=== PATIENT | female | born 1965 | race Asian ===

== ENCOUNTER 2016-10-31 20:08 | Emergency (ER) | payer SELFPAY ==
[~2016-10-31] VITALS: Ht 160 cm; Wt 57.6 kg
[2016-10-31 21:03] LABS: Basophils # (auto) 0 uL; CONDITION Y; Eosinophils # (auto) 0 uL; Hematocrit 39.4 % (36.0-46.0); Hemoglobin 13.1 g/dL (12.2-16.2); Lymphocytes # (auto) 0.6 uL; Lymphocytes % (auto) 6.6 % (10.0-50.0); Mean Corpuscular Hgb Conc. 33.2 g/dL (32.0-36.0); Mean Corpuscular Volume 90.3 fL (80.0-100.0); Mean Platelet Volume 9.3 fL (7.4-10.4); Monocytes # (auto) 0.3 uL; Monocytes % (auto) 3.2 % (0.0-12.0); Neutrophils # (auto) 8.3 uL; Neutrophils % (auto) 90.2 % (37.0-80.0); Platelet Count (auto) 344 10^3/uL (140-450); Red Cell Distribution Width 14.3 % (11.6-16.0); White Blood Cell 9.2 10^3/uL (4.4-10.8)
[2016-10-31 21:19] LABS: INR 0.94 (0.9-1.15); Partial Thromboplastin Time 25.4 sec (22.64-33.71); Prothrombin Time 10.2 sec (9.37-12.3)
[2016-10-31 21:29] LABS: Albumin 4.3 g/dL (3.4-5.0); Anion Gap 12 (5-15); Aspartate Aminotransferase 41 U/L (15-37); BUN/Creatinine Ratio 19.8; Blood Urea Nitrogen 16 mg/dL (7-18); Calcium 8.8 mg/dL (8.5-10.1); Carbon Dioxide 24 mmol/L (21-32); Chloride 105 mmol/L (98-107); GFR African American 97 mL/min; GFR Non-African American 80 mL/min; Glucose 133 mg/dL (74-106); Magnesium 2.1 mg/dL (1.6-2.6); Potassium 3.8 mmol/L (3.5-5.1); Sodium 141 mmol/L (136-145)
[2016-10-31 21:34] LABS: Alkaline Phosphatase 151 U/L (45-117); Bilirubin, Total 0.4 mg/dL (0.2-1.0); Total Protein 8.3 g/dL (6.4-8.2)
[2016-10-31 21:41] LABS: Urine Bilirubin Negative (Negative); Urine Color Yellow (Yellow); Urine Glucose Normal (Normal); Urine Mucus FEW (None Seen); Urine Nitrite Negative (Negative); Urine RBC 1 /hpf (0 - 4); Urine Squamous Epithelial Cell FEW /hpf (<5); Urine Urobilinogen Normal (Negative)
[2016-10-31 21:43] LABS: Urine Blood Negative /uL (Negative); Urine Ketone 3+ (Negative)
[2016-11-01] MEDS ORDERED: SODIUM CHLORIDE 0.9% 1,000 ML IVB ONE (01:26)
[2016-11-01] MEDS ORDERED: PANTOPRAZOLE SODIUM 40 MG/10 ML VIAL IV STA (01:26)
[2016-11-01] MEDS ORDERED: HYDROmorphone HCL 2 MG/ML VL IV ONE (01:30)
[2016-11-01] MEDS ORDERED: ALUM & MAG HYDROX-SIMETH LIQ(MAALOX) 30 ML PO ONE (01:30)
[2016-11-01] MEDS ORDERED: LIDOCAINE VISCOUS 2% 15ML UD PO ONE (01:30)
[2016-11-01] MEDS ORDERED: ONDANSETRON HCL 4 MG/2 ML VIAL IV ONE (01:30)
[2016-11-01 02:04] LABS: Amylase 74 U/L (25-115)
[2016-11-01 05:28] VITALS: BP 115/65
== END 2016-11-01 05:35 | disposition home or self-care (01) ==
LOC: ER 20:16
DX: K29.70 Gastritis, unspecified, without bleeding (principal)
CPT/HCPCS: 36415; 71020; 76705; 80053; 81001; 82150; 82962; 83690; 83735; 84484; 84702; 85025; 85610; 85730; 93005; 96361; 96374; 96375; 99285; C9113; J1170; J2405; J7030